=== PATIENT | female | born 1960 | race Caucasian/White ===

== ENCOUNTER 2017-05-08 16:44 | Emergency (ER) | payer OTHER ==
[2017-05-08] MEDS ORDERED: NS 1,000 ML IV ONE (16:52)
[2017-05-08] MEDS ORDERED: NITROGLYCERIN 0.4 MG BTL SL PRN (16:52)
[2017-05-08] MEDS ORDERED: DIAZEPAM 5 MG/ML 1 ML SYR IVP ONE (16:53)
[2017-05-08] MEDS ORDERED: GLUCAGON HCL 1 MG VIAL IVP ONE (16:53)
[2017-05-08] MEDS ORDERED: ONDANSETRON 4 MG/2 ML VIAL IVP ONE (16:55)
--- NOTE | 2017-05-08 16:59 | EDPHY ---
H & P Stated Complaint: choked on piece of steak. Time Seen by Provider: 05/08/17 16:46 HPI/ROS: CHIEF COMPLAINT: Esophageal foreign body HISTORY OF PRESENT ILLNESS: The patient is a 56-year-old female who comes to the emergency department via EMS complaining of esophageal foreign body. She states that she was eating steak at work. She swallowed it and got stuck in her throat. She states that this has happened several times before usually with meet but sometimes with bread. However it Usually passes after a minute or 2. Today it did not. She states that 1 point she felt like she had trouble breathing and coworkers stated that she was turning blue. It then seemed to shift and she felt much better. She did not cough or choke. When paramedics got there she had normal saturations and vital signs. No vomiting. REVIEW OF SYSTEMS: Constitutional: denies: chills, fever, recent illness, recent injury EENTM: denies: blurred vision, double vision, nose congestion Respiratory: denies: cough, shortness of breath Cardiac: denies: chest pain, irregular heart rate, lightheadedness, palpitations Gastrointestinal/Abdominal: See HPI Genitourinary: denies: dysuria, frequency, hematuria, pain Musculoskeletal: denies: joint pain, muscle pain Skin: denies: lesions, rash, jaundice, bruising Neurological: denies: headache, numbness, paresthesia, tingling, dizziness, weakness Hematologic/Lymphatic: denies: blood clots, easy bleeding, easy bruising Immunologic/allergic: denies: HIV/AIDS, transplant EXAM: GENERAL: Well-appearing, well-nourished and in no acute distress. HEAD: Atraumatic, normocephalic. EYES: Pupils equal round and reactive to light, extraocular movements intact, sclera anicteric, conjunctiva are normal. ENT: TMs normal, nares patent, oropharynx clear without exudates. Moist mucous membranes. NECK: Normal range of motion, supple without lymphadenopathy or JVD. LUNGS: Breath sounds clear to auscultation bilaterally and equal. No wheezes rales or rhonchi. HEART: Regular rate and rhythm without murmurs, rubs or gallops. ABDOMEN: Soft, nontender, normoactive bowel sounds. No guarding, no rebound. No masses appreciated. BACK: No CVA tenderness, no spinal tenderness, step-offs or deformities EXTREMITIES: Normal range of motion, no pitting or edema. No clubbing or cyanosis. NEUROLOGICAL: Cranial nerves II through XII grossly intact. Normal speech, normal gait. 5/5 strength, normal movement in all extremities, normal sensation PSYCH: Normal mood, normal affect. SKIN: Warm, dry, normal turgor, no visible rashes or lesions. Source: Patient Exam Limitations: No limitations - Personal History LMP (Females 10-55): Unknown Current Tetanus/Diphtheria Vaccine: No Current Tetanus Diphtheria and Acellular Pertussis (TDAP): No - Medical/Surgical History Hx Asthma: No Hx Chronic Respiratory Disease: No Hx Diabetes: No Hx Cardiac Disease: No Hx Renal Disease: No Hx Cirrhosis: No Hx Alcoholism: No Hx HIV/AIDS: No Hx Splenectomy or Spleen Trauma: No Other PMH: hypothyroid, hyperlipidemia, depression - Family History Significant Family History: No pertinent family hx - Social History Smoking Status: Never smoked Alcohol Use: Sober Constitutional: Initial Vital Signs Temperature (C) 36.8 C 05/08/17 16:48 Heart Rate 79 05/08/17 16:48 Respiratory Rate 18 05/08/17 16:48 Blood Pressure 139/97 H 05/08/17 16:48 O2 Sat (%) 94 05/08/17 16:48 O2 Delivery Mode Room Air Allergies/Adverse Reactions: No Known Allergies Allergy (Unverified 05/08/17 16:53) Home Medications: Medication Instructions Recorded Levothyroxine 05/08/17 Paxil 05/08/17 Medical Decision Making - Diagnostics Imaging Results: Imaging Impressions Chest X-Ray 05/08/17 16:53 Impression: Normal. No evidence for aspiration pneumonia. ED Course/Re-evaluation: 5:05 p.m. the patient is tolerating liquids. She states that it is not uncomfortable to drink but that she does still have some mild discomfort in her lower esophagus. We will give her crackers to see if this also goes down. Spoke with Dr. Wolfe. As long as she is able to drink and does not seem in distress will hold off on scoping in outpatient setting. 5:30 p.m. the patient's friend is here who witnessed the episode. I asked her she gave her the Heimlich and she said no because she did not seem like she had trouble breathing. 6:00 p.m. the patient is tolerating p.o. Liquids and solids. I encouraged her to have a liquid diet and follow up with Dr. Wolfe in the next 48 hr. She agrees with this plan and declines further workup or observation. Differential Diagnosis: Partial list of the Differential diagnosis considered include but were not limited to; esophageal foreign body, aspiration, web, varices and although unlikely based on the history and physical exam, I also considered acute coronary disease, perforation, [place]. I discussed these differential diagnoses and the plan with the patient as well as the usual and expected course. The patient understands that the diagnosis is provisional and that in medicine we are not always correct and that further workup is often warranted. Usual and customary warnings were given. All of the patient's questions were answered. The patient was instructed to return to the emergency department should the symptoms at all worsen or return, otherwise to followup with the physician as we discussed. - Data Points Laboratory Results: Laboratory Results 05/08/17 16:50 05/08/17 16:50 05/08/17 05/08/17 16:50 16:50 WBC 7.98 10^3/uL 10^3/uL (3.80-9.50) RBC 4.69 10^6/uL 10^6/uL (4.18-5.33) Hgb 14.3 g/dL g/dL (12.6-16.3) Hct 41.9 % % (38.0-47.0) MCV 89.3 fL fL (81.5-99.8) MCH 30.5 pg pg (27.9-34.1) MCHC 34.1 g/dL g/dL (32.4-36.7) RDW 13.2 % % (11.5-15.2) Plt Count 266 10^3/uL 10^3/uL (150-400) MPV 9.5 fL fL (8.7-11.7) Neut % (Auto) 68.3 % % (39.3-74.2) Lymph % (Auto) 22.2 % % (15.0-45.0) Mcintosh % (Auto) 6.4 % % (4.5-13.0) Eos % (Auto) 2.1 % % (0.6-7.6) Baso % (Auto) 0.6 % % (0.3-1.7) Nucleat RBC Rel Count 0.0 % % (0.0-0.2) Absolute Neuts (auto) 5.45 10^3/uL 10^3/uL (1.70-6.50) Absolute Lymphs (auto) 1.77 10^3/uL 10^3/uL (1.00-3.00) Absolute Monos (auto) 0.51 10^3/uL 10^3/uL (0.30-0.80) Absolute Eos (auto) 0.17 10^3/uL 10^3/uL (0.03-0.40) Absolute Basos (auto) 0.05 10^3/uL 10^3/uL (0.02-0.10) Absolute Nucleated RBC 0.00 10^3/uL 10^3/uL (0-0.01) Immature Gran % 0.4 % % (0.0-1.1) Immature Gran # 0.03 10^3/uL 10^3/uL (0.00-0.10) Sodium 141 mEq/L mEq/L (135-145) Potassium 4.1 mEq/L mEq/L (3.5-5.2) Chloride 103 mEq/L mEq/L (97-110) Carbon Dioxide 22 mEq/l mEq/l (22-31) Anion Gap 16 mEq/L mEq/L (8-16) BUN 17 mg/dL mg/dL (7-23) Creatinine 0.9 mg/dL mg/dL (0.6-1.0) Estimated GFR > 60 Glucose 96 mg/dL mg/dL (70-100) Calcium 10.1 mg/dL mg/dL (8.5-10.4) Departure - Departure Disposition: Home, Routine, Self-Care Clinical Impression: Esophageal foreign body Qualifiers: Encounter type: initial encounter Qualified Code(s): T18.108A - Unspecified foreign body in esophagus causing other injury, initial encounter Condition: Good Instructions: Soft Diet (ED), Esophageal Foreign Body (ED) Referrals: Patient,NotPresent [Unknown] - As per Instructions Samuel Wolfe MD [Medical Doctor] - 1-2 days without fail
[2017-05-08 17:02] LABS: PLATELET COUNT 266 10^3/uL (150-400)
[2017-05-08 18:00] VITALS: BP 128/69; PULSE 88; RESP 16; TEMP 98.1; O2SAT 95
== END 2017-05-08 18:01 | disposition home or self-care (01) ==
DX: T18.128A Food in esophagus causing other injury, initial encounter (principal); X58.XXXA Exposure to other specified factors, initial encounter; Y99.0 Civilian activity done for income or pay; Y93.89 Activity, other specified